=== PATIENT | male | born 1970 | race Caucasian/White ===

== ENCOUNTER 2016-08-11 08:03 | Emergency (ER) | payer OTHER ==
--- NOTE | 2016-08-11 09:06 | ED CLINICAL REPORT ---
Clinical Report - Physicians/Mid Levels [facility] [address], [place] [address] 08/11/2016 8:05 Patient: KEISHA RHOADES Time Seen: 08:33. Arrived- By private vehicle. Historian- patient. HISTORY OF PRESENT ILLNESS Chief Complaint: LESION. This started last night and is still present. It was abrupt in onset and has been constant. It is described as painful. It has been located on the left arm. No cause has been identified. Similar symptoms previously: Several times. ( MRSA necrotizing fasciitis). REVIEW OF SYSTEMS No chills, fever, sweats, calf pain or chest pain. No cough, difficulty breathing, pedal edema, palpitations or urinary problems. He has had nausea. All systems otherwise negative, except as recorded above. PAST HISTORY PCP - [facility]. SOCIAL HISTORY Current every day light tobacco smoker (cigarette)- less than 1/2 a pack per day. History of drug use: heroin, methamphetamines, marijuana. FAMILY HISTORY No significant family medical history. ADDITIONAL NOTES The nursing notes have been reviewed. PHYSICAL EXAM Vital Signs: 08/11/2016 08:12 BP: 131/90. HR: 72. RR: 20. O2 saturation: 100%. Temp: 97.7 F. Pain level now: 9/10. Have been reviewed. Appearance: Alert. Eyes: Pupils equal, round and reactive to light. ENT: Pharynx normal. Neck: Neck supple. CVS: Normal heart rate and rhythm. Heart sounds normal. Respiratory: Breath sounds normal. Abdomen: Nontender. No organomegaly. Skin: Medium tender indurated area with cellulitis to left arm. No fluctuance, pointing or drainage. Extremities: No calf tenderness. PROGRESS AND PROCEDURES Course of Care: in the patient's left upper arm he was noted to have an area of medium sized mild cellulitis. There was soft tissue swelling noted throughout the area. I could not appreciate any fluctuance. However, with an ultrasound I was able to locate a pocket that appeared to be an abscess that was deep, just inferior to the deltoid muscle. Using 2% lidocaine without epinephrine, I obtained local analgesia after having prepped the area in sterile fashion. Using an 18-gauge needle I was subsequently able to aspirate approximately 2 cc of purulent material and this was sent for culture. I made a small incision with an 11 blade scalpel at the same site and attempted to see if I could drain any more pus. However, I was not able to express any further material. The wound was then subsequently dressed. Patient is stable. Patient/family counseled. Old medical records reviewed. Disposition: Discharged. Condition: stable. CLINICAL IMPRESSION Single deep abscess to the left upper extremity. INSTRUCTIONS Warnings: Further evaluation is necessary. GENERAL WARNINGS: Return or contact your physician immediately if your condition worsens or changes unexpectedly, if not improving as expected, or if other problems arise. Your Current Medications: CONTINUE TAKING THE FOLLOWING MEDICATIONS: Albuterol Sulfate Inhalation. AmLODIPine Besylate Oral. Combivent Respimat Inhalation. Losartan Potassium Oral. Singulair Oral. Zantac Oral. Prescription Medications: Bactrim DS 800 mg / 160 mg: take 2 tablets orally every 12 hours for 10 days. No refill. Substitution is permissible. Understanding of the discharge instructions verbalized by patient. Follow-up with: [facility], , , [address], , [place], [id number] Follow up tomorrow for wound check. Call for an appointment. (Electronically signed by Guevara Ariza MD 08/11/2016 9:10)
--- NOTE | 2016-08-11 09:06 | ED CLINICAL REPORT ---
Clinical Report - Physicians/Mid Levels [facility] [address], [place] [address] 08/11/2016 8:05 Patient: KEISHA RHOADES Time Seen: 08:33. Arrived- By private vehicle. Historian- patient. HISTORY OF PRESENT ILLNESS Chief Complaint: LESION. This started last night and is still present. It was abrupt in onset and has been constant. It is described as painful. It has been located on the left arm. No cause has been identified. Similar symptoms previously: Several times. ( MRSA necrotizing fasciitis). REVIEW OF SYSTEMS No chills, fever, sweats, calf pain or chest pain. No cough, difficulty breathing, pedal edema, palpitations or urinary problems. He has had nausea. All systems otherwise negative, except as recorded above. PAST HISTORY PCP - [facility]. SOCIAL HISTORY Current every day light tobacco smoker (cigarette)- less than 1/2 a pack per day. History of drug use: heroin, methamphetamines, marijuana. FAMILY HISTORY No significant family medical history. ADDITIONAL NOTES The nursing notes have been reviewed. PHYSICAL EXAM Vital Signs: 08/11/2016 08:12 BP: 131/90. HR: 72. RR: 20. O2 saturation: 100%. Temp: 97.7 F. Pain level now: 9/10. Have been reviewed. Appearance: Alert. Eyes: Pupils equal, round and reactive to light. ENT: Pharynx normal. Neck: Neck supple. CVS: Normal heart rate and rhythm. Heart sounds normal. Respiratory: Breath sounds normal. Abdomen: Nontender. No organomegaly. Skin: Medium tender indurated area with cellulitis to left arm. No fluctuance, pointing or drainage. Extremities: No calf tenderness. PROGRESS AND PROCEDURES Course of Care: in the patient's left upper arm he was noted to have an area of medium sized mild cellulitis. There was soft tissue swelling noted throughout the area. I could not appreciate any fluctuance. However, with an ultrasound I was able to locate a pocket that appeared to be an abscess that was deep, just inferior to the deltoid muscle. Using 2% lidocaine without epinephrine, I obtained local analgesia after having prepped the area in sterile fashion. Using an 18-gauge needle I was subsequently able to aspirate approximately 2 cc of purulent material and this was sent for culture. I made a small incision with an 11 blade scalpel at the same site and attempted to see if I could drain any more pus. However, I was not able to express any further material. The wound was then subsequently dressed. Patient is stable. Patient/family counseled. Old medical records reviewed. Disposition: Discharged. Condition: stable. CLINICAL IMPRESSION Single deep abscess to the left upper extremity. INSTRUCTIONS Warnings: Further evaluation is necessary. GENERAL WARNINGS: Return or contact your physician immediately if your condition worsens or changes unexpectedly, if not improving as expected, or if other problems arise. Your Current Medications: CONTINUE TAKING THE FOLLOWING MEDICATIONS: Albuterol Sulfate Inhalation. AmLODIPine Besylate Oral. Combivent Respimat Inhalation. Losartan Potassium Oral. Singulair Oral. Zantac Oral. Prescription Medications: Bactrim DS 800 mg / 160 mg: take 2 tablets orally every 12 hours for 10 days. No refill. Substitution is permissible. Understanding of the discharge instructions verbalized by patient. Follow-up with: [facility], , , [address], , [place], [address] Follow up tomorrow for wound check. Call for an appointment. (Electronically signed by Guevara Ariza MD 08/11/2016 9:10)
--- NOTE | 2016-08-11 09:07 | ED NURSING NOTES ---
Clinical Report - Nurses [facility] [place] [address] 08/11/2016 8:05 Patient: KEISHA RHOADES TRIAGE Triage time 08:13. Acuity: LEVEL 4. Chief Complaint: RIGHT UPPER EXTREMITY PAIN, SWELLING and REDNESS. --08:18 Ju Ortega R.N. 08:12 08/11/16. BP: 131/90. HR: 72. RR: 20. O2 saturation: 100%. Temp: 97.7 F. Pain level now: 11/14. --08:18 Ju Ortega R.N. Weight: 86.1 kg stated. Height/Length: 77 inches Per Patient. BMI: 22.5. --08:14 Ju Ortega R.N. Medications Albuterol Sulfate Inhalation. AmLODIPine Besylate Oral. Combivent Respimat Inhalation. Losartan Potassium Oral. Singulair Oral. Zantac Oral. --08:15 Ju Ortega R.N. Allergies Haldol. --08:15 Ju Ortega R.N. Ibuprofen. --08:15 Ju Ortega R.N. History Arrived by private vehicle. Historian: patient. Primary physician (Jacquelyn). No injury occurred. This occurred last night. He has had redness. 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 PAST MEDICAL HX: Hypertension. ( asthma, COPD). SOCIAL HX: Light tobacco smoker (cigarette)- less than 1/2 a pack per day. Occasional alcohol use. History of drug use: heroin, methamphetamines, marijuana. Infectious disease exposure. (Hepatitis C, MRSA). ( last IVDA was 2 months ago. Marijuana use regularly.). ABUSE ASSESSMENT: No report of abuse. SELF HARM ASSESSMENT: A self harm assessment was performed. The patient answered "no" to the question "Do you have thoughts of harming or killing yourself?" and "Have you recently had thoughts about harming or killing others?". --08:18 Stone, Ju, R.N. Interventions ID band on patient. To treatment room. --08:18 Ju Ortega R.N. PHYSICAL ASSESSMENT Ambulatory to room. GENERAL / NEURO / PSYCH: Oriented X 4. Alert. Appears in no acute distress. Appears anxious. EXTREMITIES: Erythema on the extremities. Increased warmth on the extremities. Neuro-vascular status intact to the extremity. Left arm: tenderness, swelling and erythema (10 x 14 cm area of redness, swelling, increased warmth). SKIN: Skin intact. --08:20 Ju Ortega R.N. NURSING PROGRESS NOTES Neuro-vascular extremity check. Reassurance given. Patient waiting for evaluation. --08:20 Ju Ortega R.N. <<STRICKEN ENTRY-- ( ice pack given). --08:20 Ju Ortega R.N. --END STRIKE>> Correction --08:22 Ju Ortega R.N. DISPOSITION / DISCHARGE Departure time: 09:09. Condition at departure: stable. No learning barriers present. Discharge instructions provided and reviewed with the patient. Reviewed warnings (take all medications as directed. Return for worsening symptoms.). Reviewed medication(s) side effects, dosing and course information. Prescription(s) given to the patient. Treatments reviewed. Patient verbalized understanding. Written instructions provided in Croatian. The patient was discharged by the physician. He was discharged home. He left the Emergency Department ambulatory and via private vehicle. Patient driving. --09:11 Ju Ortega R.N. 09:09 08/11/16. BP: 131/90. HR: 72. RR: 20. O2 saturation: 100%. Temp: 97.7 F. Pain level now: 12/14. --09:11 Ju Ortega R.N. Locked/Released at 08/11/2016 18:26 by Ju Ortega R.N.
--- NOTE | 2016-08-11 09:07 | ED ORDER SUMMARY ---
..... Patient: KEISHA RHOADES OrderSheet [facility] VisitID: [id number] [address] [place] [address] 46y, M Registration Date/Time: 08/11/2016 ORDER SHEET Weight: 86.1 kg (stated) Allergies: Haldol, Ibuprofen GENERAL ORDERS: Culture, Wound Deep (Arm) (LUE deep abcess) Urgent (09:08/11/2016 Silvina HALE) MEDICATION ORDERS: IV FLUIDS: ORDER SHEET NOTES: [Electronically signed by Guevara Ariza MD (09:10 08/11/2016)] [Electronically signed by Ju Ortega R.N. (18:08/11/2016)] [Electronically locked/signed by Ju Ortega R.N. (18:08/11/2016)]
--- NOTE | 2016-08-11 09:07 | ED NURSING NOTES ---
Clinical Report - Nurses [facility] [place] [address] 08/11/2016 8:05 Patient: KEISHA RHOADES TRIAGE Triage time 08:13. Acuity: LEVEL 4. Chief Complaint: RIGHT UPPER EXTREMITY PAIN, SWELLING and REDNESS. --08:18 Ju Ortega R.N. 08:12 08/11/16. BP: 131/90. HR: 72. RR: 20. O2 saturation: 100%. Temp: 97.7 F. Pain level now: 11/14. --08:18 Ju Ortega R.N. Weight: 86.1 kg stated. Height/Length: 77 inches Per Patient. BMI: 22.5. --08:14 Ju Ortega R.N. Medications Albuterol Sulfate Inhalation. AmLODIPine Besylate Oral. Combivent Respimat Inhalation. Losartan Potassium Oral. Singulair Oral. Zantac Oral. --08:15 Ju Ortega R.N. Allergies Haldol. --08:15 Ju Ortega R.N. Ibuprofen. --08:15 Ju Ortega R.N. History Arrived by private vehicle. Historian: patient. Primary physician (Jacquelyn). No injury occurred. This occurred last night. He has had redness. 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 PAST MEDICAL HX: Hypertension. ( asthma, COPD). SOCIAL HX: Light tobacco smoker (cigarette)- less than 1/2 a pack per day. Occasional alcohol use. History of drug use: heroin, methamphetamines, marijuana. Infectious disease exposure. (Hepatitis C, MRSA). ( last IVDA was 2 months ago. Marijuana use regularly.). ABUSE ASSESSMENT: No report of abuse. SELF HARM ASSESSMENT: A self harm assessment was performed. The patient answered "no" to the question "Do you have thoughts of harming or killing yourself?" and "Have you recently had thoughts about harming or killing others?". --08:18 Stone, Ju, R.N. Interventions ID band on patient. To treatment room. --08:18 Ju Ortega R.N. PHYSICAL ASSESSMENT Ambulatory to room. GENERAL / NEURO / PSYCH: Oriented X 4. Alert. Appears in no acute distress. Appears anxious. EXTREMITIES: Erythema on the extremities. Increased warmth on the extremities. Neuro-vascular status intact to the extremity. Left arm: tenderness, swelling and erythema (10 x 14 cm area of redness, swelling, increased warmth). SKIN: Skin intact. --08:20 Ju Ortega R.N. NURSING PROGRESS NOTES Neuro-vascular extremity check. Reassurance given. Patient waiting for evaluation. --08:20 Ju Ortega R.N. <<STRICKEN ENTRY-- ( ice pack given). --08:20 Ju Ortega R.N. --END STRIKE>> Correction --08:22 Ju Ortega R.N. DISPOSITION / DISCHARGE Departure time: 09:09. Condition at departure: stable. No learning barriers present. Discharge instructions provided and reviewed with the patient. Reviewed warnings (take all medications as directed. Return for worsening symptoms.). Reviewed medication(s) side effects, dosing and course information. Prescription(s) given to the patient. Treatments reviewed. Patient verbalized understanding. Written instructions provided in [place]. The patient was discharged by the physician. He was discharged home. He left the Emergency Department ambulatory and via private vehicle. Patient driving. --09:11 Ju Ortega R.N. 09:09 08/11/16. BP: 131/90. HR: 72. RR: 20. O2 saturation: 100%. Temp: 97.7 F. Pain level now: 12/14. --09:11 Ju Ortega R.N. Locked/Released at 08/11/2016 18:26 by Ju Ortega R.N.
--- NOTE | 2016-08-11 09:07 | ED ORDER SUMMARY ---
..... Patient: KEISHA RHOADES OrderSheet [facility] VisitID: [id number] [address] [place] [address] 46y, M Registration Date/Time: 08/11/2016 ORDER SHEET Weight: 86.1 kg (stated) Allergies: Haldol, Ibuprofen GENERAL ORDERS: Culture, Wound Deep (Arm) (LUE deep abcess) Urgent (09:08/11/2016 Silvina HALE) MEDICATION ORDERS: IV FLUIDS: ORDER SHEET NOTES: [Electronically signed by Guevara Ariza MD (09:10 08/11/2016)] [Electronically signed by Ju Ortega R.N. (18:08/11/2016)] [Electronically locked/signed by Ju Ortega R.N. (18:08/11/2016)]
--- NOTE | 2016-08-11 18:26 | ED MED RECONCILIATION SUMMARY ---
Patient: KEISHA RHOADES Medication Reconciliation Report [facility] VisitID: [id number] [address] [place] [address] 46y, M Registration Date/Time: 08/11/2016 Weight: 86.1 kg Height/Length: 77 in. BMI: 22.5 ALLERGIES: Haldol, Ibuprofen The patient's Home Medications are listed below: CONTINUE TAKING THE FOLLOWING MEDICATIONS: Albuterol Sulfate Inhalation AmLODIPine Besylate Oral Combivent Respimat Inhalation Losartan Potassium Oral Singulair Oral Zantac Oral The source(s) of the original Home Medication information: Not obtained. The following Medications were given to the patient in the Emergency Department: None. The following Medications were prescribed to the patient: Bactrim DS 800 mg / 160 mg: take 2 tablets orally every 12 hours for 10 days. No refill. Substitution is permissible. -- Guevara Ariza MD
--- NOTE | 2016-08-11 18:26 | ED DISCHARGE INSTRUCTIONS ---
Patient: KEISHA RHOADES General Instructions [facility] VisitID: [id number] [address] [place] [address] 46y, M Registration Date/Time: 08/11/2016 Single deep abscess to the left upper extremity. INSTRUCTIONS Warnings: Further evaluation is necessary. GENERAL WARNINGS: Return or contact your physician immediately if your condition worsens or changes unexpectedly, if not improving as expected, or if other problems arise. Your Current Medications: CONTINUE TAKING THE FOLLOWING MEDICATIONS: Albuterol Sulfate Inhalation. AmLODIPine Besylate Oral. Combivent Respimat Inhalation. Losartan Potassium Oral. Singulair Oral. Zantac Oral. Prescription Medications: Bactrim DS 800 mg / 160 mg: take 2 tablets orally every 12 hours for 10 days. No refill. Substitution is permissible. Understanding of the discharge instructions verbalized by patient. Follow-up with: [facility], , , [address], , [place], [address] Follow up tomorrow for wound check. Call for an appointment. ADDITIONAL INFORMATION Abscess (Antibiotic Treatment Only) An abscess (sometimes called a boil) occurs when bacteria get trapped under the skin and begin to grow. Pus forms inside the abscess as the body responds to the bacteria. An abscess can occur with an insect bite, ingrown hair, blocked oil gland, pimple, cyst, or puncture wound. In the early stages, redness and tenderness are the only symptoms. Sometimes, this stage can be treated with antibiotics alone. If the abscess does not respond to antibiotic treatment, it will need to be drained with a small cut, under local anesthesia. Home care The following will help you care for your abscess at home: Soak the wound in hot water or apply hot packs (small towel soaked in hot water) to the area for 20 minutes at a time. Do this three to four times a day. Apply antibiotic cream or ointment onto the skin 3-4 times a day, unless something else was prescribed. Some ointments include an antibiotic plus a local pain reliever. If your doctor prescribed antibiotics, do not stop taking this medication until you have finished the prescribed course or the doctor tells you to stop. You may use an [id number] pain medication to control pain, unless another pain medicine was prescribed. If you have chronic liver or kidney disease or ever had a stomach ulcer or GI bleeding, talk with your doctor before using these any of these. Follow-up care Follow up with your health care provider as advised by our staff. Look at your wound each day for the signs of worsening infection listed below. When to seek medical care Get prompt medical attention if any of the following occur: An increase in redness or swelling Red streaks in the skin leading away from the abscess An increase in local pain or swelling Fever of 100.4F (38C) or higher, or as directed by your health care provider Pus or fluid coming from the abscess Sulfamethoxazole, Trimethoprim Oral tablet What is this medicine? SULFAMETHOXAZOLE; TRIMETHOPRIM or SMX-TMP (suhl fuh meth OK purvi zohl; trye METH oh prim) is a combination of a sulfonamide antibiotic and a second antibiotic, trimethoprim. It is used to treat or prevent certain kinds of bacterial infections. It will not work for colds, flu, or other viral infections. How should I use this medicine? Take this medicine by mouth with a full glass of water. Follow the directions on the prescription label. Take your medicine at regular intervals. Do not take it more often than directed. Do not skip doses or stop your medicine early. Talk to your band splicer regarding the use of this medicine in children. Special care may be needed. This medicine has been used in children as young as 2 months of age. What side effects may I notice from receiving this medicine? Side effects that you should report to your doctor or health direct care staffer as soon as possible: allergic reactions like skin rash or hives, swelling of the face, lips, or tongue breathing problems fever or chills, sore throat irregular heartbeat, chest pain joint or muscle pain pain or difficulty passing urine red pinpoint spots on skin redness, blistering, peeling or loosening of the skin, including inside the mouth unusual bleeding or bruising unusually weak or tired yellowing of the eyes or skin Side effects that usually do not require medical attention (report to your doctor or health direct care staffer if they continue or are bothersome): diarrhea dizziness headache loss of appetite nausea, vomiting nervousness What may interact with this medicine? Do not take this medicine with any of the following medications: aminobenzoate potassium dofetilide metronidazole This medicine may also interact with the following medications: RILEY inhibitors like benazepril, enalapril, lisinopril, and ramipril cyclosporine digoxin diuretics indomethacin medicines for diabetes methenamine methotrexate phenytoin potassium supplements pyrimethamine sulfinpyrazone tricyclic antidepressants warfarin What if I miss a dose? If you miss a dose, take it as soon as you can. If it is almost time for your next dose, take only that dose. Do not take double or extra doses. Where should I keep my medicine? Keep out of the reach of children. Store at room temperature between 20 to 25 degrees C (68 to 77 degrees F). Protect from light. Throw away any unused medicine after the expiration date. What should I tell my health care provider before I take this medicine? They need to know if you have any of these conditions: anemia asthma being treated with anticonvulsants if you frequently drink alcohol containing drinks kidney disease liver disease low level of folic acid or ijvaujx-0-eqsbonwag dehydrogenase poor nutrition or malabsorption porphyria severe allergies thyroid disorder an unusual or allergic reaction to sulfamethoxazole, trimethoprim, sulfa drugs, other medicines, foods, dyes, or preservatives or trying to get breast-feeding What should I watch for while using this medicine? Tell your doctor or health direct care staffer if your symptoms do not improve. Drink several glasses of water a day to reduce the risk of kidney problems. Do not treat diarrhea with over the counter products. Contact your doctor if you have diarrhea that lasts more than 2 days or if it is severe and watery. This medicine can make you more sensitive to the sun. Keep out of the sun. If you cannot avoid being in the sun, wear protective clothing and use a sunscreen. Do not use sun lamps or tanning beds/booths. You have been given the following additional information: Abscess, Antiobiotic Treatment Only Sulfamethoxazole, Trimethoprim Oral tablet (Electronically signed by Guevara Ariza MD 08/11/2016 9:10)
--- NOTE | 2016-08-11 18:26 | ED MAR SUMMARY ---
..... Medication Administration Record [facility] [address] [place] [id number] Patient: KEISHA RHOADES Visit ID: [id number] 46y, M Weight: 86.1 kg Height/Length: 77 in BMI: 22.5 ALLERGIES: Haldol, Ibuprofen
--- NOTE | 2016-08-11 18:26 | ED DISCHARGE INSTRUCTIONS ---
Patient: KEISHA RHOADES General Instructions [facility] VisitID: [id number] [address] [place] [place] [address] 46y, M Registration Date/Time: 08/11/2016 Single deep abscess to the left upper extremity. INSTRUCTIONS Warnings: Further evaluation is necessary. GENERAL WARNINGS: Return or contact your physician immediately if your condition worsens or changes unexpectedly, if not improving as expected, or if other problems arise. Your Current Medications: CONTINUE TAKING THE FOLLOWING MEDICATIONS: Albuterol Sulfate Inhalation. AmLODIPine Besylate Oral. Combivent Respimat Inhalation. Losartan Potassium Oral. Singulair Oral. Zantac Oral. Prescription Medications: Bactrim DS 800 mg / 160 mg: take 2 tablets orally every 12 hours for 10 days. No refill. Substitution is permissible. Understanding of the discharge instructions verbalized by patient. Follow-up with: [facility], , , [address], , [place], [id number] Follow up tomorrow for wound check. Call for an appointment. ADDITIONAL INFORMATION Abscess (Antibiotic Treatment Only) An abscess (sometimes called a boil) occurs when bacteria get trapped under the skin and begin to grow. Pus forms inside the abscess as the body responds to the bacteria. An abscess can occur with an insect bite, ingrown hair, blocked oil gland, pimple, cyst, or puncture wound. In the early stages, redness and tenderness are the only symptoms. Sometimes, this stage can be treated with antibiotics alone. If the abscess does not respond to antibiotic treatment, it will need to be drained with a small cut, under local anesthesia. Home care The following will help you care for your abscess at home: Soak the wound in hot water or apply hot packs (small towel soaked in hot water) to the area for 20 minutes at a time. Do this three to four times a day. Apply antibiotic cream or ointment onto the skin 3-4 times a day, unless something else was prescribed. Some ointments include an antibiotic plus a local pain reliever. If your doctor prescribed antibiotics, do not stop taking this medication until you have finished the prescribed course or the doctor tells you to stop. You may use an [id number] pain medication to control pain, unless another pain medicine was prescribed. If you have chronic liver or kidney disease or ever had a stomach ulcer or GI bleeding, talk with your doctor before using these any of these. Follow-up care Follow up with your health care provider as advised by our staff. Look at your wound each day for the signs of worsening infection listed below. When to seek medical care Get prompt medical attention if any of the following occur: An increase in redness or swelling Red streaks in the skin leading away from the abscess An increase in local pain or swelling Fever of 100.4F (38C) or higher, or as directed by your health care provider Pus or fluid coming from the abscess Sulfamethoxazole, Trimethoprim Oral tablet What is this medicine? SULFAMETHOXAZOLE; TRIMETHOPRIM or SMX-TMP (suhl fuh meth OK purvi zohl; trye METH oh prim) is a combination of a sulfonamide antibiotic and a second antibiotic, trimethoprim. It is used to treat or prevent certain kinds of bacterial infections. It will not work for colds, flu, or other viral infections. How should I use this medicine? Take this medicine by mouth with a full glass of water. Follow the directions on the prescription label. Take your medicine at regular intervals. Do not take it more often than directed. Do not skip doses or stop your medicine early. Talk to your civil preparedness officer regarding the use of this medicine in children. Special care may be needed. This medicine has been used in children as young as 2 months of age. What side effects may I notice from receiving this medicine? Side effects that you should report to your doctor or health daycare worker as soon as possible: allergic reactions like skin rash or hives, swelling of the face, lips, or tongue breathing problems fever or chills, sore throat irregular heartbeat, chest pain joint or muscle pain pain or difficulty passing urine red pinpoint spots on skin redness, blistering, peeling or loosening of the skin, including inside the mouth unusual bleeding or bruising unusually weak or tired yellowing of the eyes or skin Side effects that usually do not require medical attention (report to your doctor or health daycare worker if they continue or are bothersome): diarrhea dizziness headache loss of appetite nausea, vomiting nervousness What may interact with this medicine? Do not take this medicine with any of the following medications: aminobenzoate potassium dofetilide metronidazole This medicine may also interact with the following medications: RILEY inhibitors like benazepril, enalapril, lisinopril, and ramipril cyclosporine digoxin diuretics indomethacin medicines for diabetes methenamine methotrexate phenytoin potassium supplements pyrimethamine sulfinpyrazone tricyclic antidepressants warfarin What if I miss a dose? If you miss a dose, take it as soon as you can. If it is almost time for your next dose, take only that dose. Do not take double or extra doses. Where should I keep my medicine? Keep out of the reach of children. Store at room temperature between 20 to 25 degrees C (68 to 77 degrees F). Protect from light. Throw away any unused medicine after the expiration date. What should I tell my health care provider before I take this medicine? They need to know if you have any of these conditions: anemia asthma being treated with anticonvulsants if you frequently drink alcohol containing drinks kidney disease liver disease low level of folic acid or [id number] dehydrogenase poor nutrition or malabsorption porphyria severe allergies thyroid disorder an unusual or allergic reaction to sulfamethoxazole, trimethoprim, sulfa drugs, other medicines, foods, dyes, or preservatives or trying to get breast-feeding What should I watch for while using this medicine? Tell your doctor or health daycare worker if your symptoms do not improve. Drink several glasses of water a day to reduce the risk of kidney problems. Do not treat diarrhea with over the counter products. Contact your doctor if you have diarrhea that lasts more than 2 days or if it is severe and watery. This medicine can make you more sensitive to the sun. Keep out of the sun. If you cannot avoid being in the sun, wear protective clothing and use a sunscreen. Do not use sun lamps or tanning beds/booths. You have been given the following additional information: Abscess, Antiobiotic Treatment Only Sulfamethoxazole, Trimethoprim Oral tablet (Electronically signed by Guevara Ariza MD 08/11/2016 9:10)
--- NOTE | 2016-08-11 18:26 | ED MED RECONCILIATION SUMMARY ---
Patient: KEISHA RHOADES Medication Reconciliation Report [facility] VisitID: [id number] [address] [place] [address] 46y, M Registration Date/Time: 08/11/2016 Weight: 86.1 kg Height/Length: 77 in. BMI: 22.5 ALLERGIES: Haldol, Ibuprofen The patient's Home Medications are listed below: CONTINUE TAKING THE FOLLOWING MEDICATIONS: Albuterol Sulfate Inhalation AmLODIPine Besylate Oral Combivent Respimat Inhalation Losartan Potassium Oral Singulair Oral Zantac Oral The source(s) of the original Home Medication information: Not obtained. The following Medications were given to the patient in the Emergency Department: None. The following Medications were prescribed to the patient: Bactrim DS 800 mg / 160 mg: take 2 tablets orally every 12 hours for 10 days. No refill. Substitution is permissible. -- Guevara Ariza MD
--- NOTE | 2016-08-11 18:26 | ED MAR SUMMARY ---
..... Medication Administration Record [facility] [address], [place] [id number] Patient: KEISHA RHOADES Visit ID: [id number] 46y, M Weight: 86.1 kg Height/Length: 77 in BMI: 22.5 ALLERGIES: Haldol, Ibuprofen
== END 2016-08-11 09:09 | disposition home or self-care (01) ==
LOC: ED SRH 08:03
DX: L02.414 Cutaneous abscess of left upper limb (principal); F17.210 Nicotine dependence, cigarettes, uncomplicated; Z88.8 Allergy status to other drugs, medicaments and biological substances; Z88.5 Allergy status to narcotic agent
CPT/HCPCS: 90131; 90309; 90470